=== PATIENT | female | born 2000 | race Caucasian/White ===

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

== ENCOUNTER 2020-12-30 14:43 | Observation (INO) ==
[2020-12-30] MEDS ORDERED: Ferumoxytol 510 MG in 0.9 % Sodium Chloride 100 ML IVPB ONE (15:36)
== END 2020-12-30 18:40 | disposition home or self-care (01) ==
LOC: 1NENULAB
PROVIDERS: ADMIT Advanced Practice Midwife; ATTEND Advanced Practice Midwife

== ENCOUNTER 2021-01-03 10:01 | Observation (INO) ==
[2021-01-03] MEDS ORDERED: Ferumoxytol 510 MG in 0.9 % Sodium Chloride 100 ML IVPB ONE (10:10)
== END 2021-01-03 11:24 | disposition home or self-care (01) ==
LOC: 1NENULAB
PROVIDERS: ADMIT Advanced Practice Midwife; ATTEND Advanced Practice Midwife

== ENCOUNTER 2021-01-08 07:57 | Inpatient (IN) ==
[2021-01-08] MEDS ORDERED: *HR* Nalbuphine 10 MG/ML AMPUL IV PRN (08:58)
[2021-01-08] MEDS ORDERED: Famotidine 20 MG/2 ML VIAL IVP PRN (08:58)
[2021-01-08] MEDS ORDERED: Naloxone 0.4 MG/ML INJ IVP PRN ×2 (08:58→11:39)
[2021-01-08] MEDS ORDERED: Lidocaine 1% 20 ML MDV INFILT PRN (08:58)
[2021-01-08] MEDS ORDERED: Metoclopramide 10 MG/2 ML VIAL IVP PRN (08:58)
[2021-01-08 09:52] LABS: Amphetamine Screen,Urine Negative ng/mL (Cutoff=1000); Barbiturate Screen,Urine Negative ng/mL (Cutoff=200); Benzodiazepines Screen,Urine Negative ng/mL (Cutoff=200); Cannabinoid Screen,Urine Negative ng/mL (Cutoff = 50); Cocaine Screen,Urine Negative ng/mL (Cutoff= 300); Opiate Screen,Urine Negative ng/mL (Cutoff=300); Phencyclidine Screen,Urine Negative ng/mL (Cutoff=25)
[2021-01-08] MEDS: Ringers Solution, Lactated 1,000 ML IVC SCH ×2 (09:52→15:09)
[2021-01-08] MEDS: Oxytocin 20 units/ LR 1000 mL 20 UNIT/1,000 ML BAG IVC SCH ×2 (09:52→18:57)
[2021-01-08] MEDS ORDERED: Vancomycin 1,500 MG/265 ML IV.SOLN IVPB SCH (10:00)
[2021-01-08 10:52] LABS: Basophils # 0.1 K/mcL (0.0-0.2); Basophils % 0.6 %; Eosinophils # 0.1 K/mcL (0.0-0.6); Eosinophils % 0.8 %; Hematocrit 29.5 % (35.3-44.9); Hemoglobin 8.6 g/dL (11.5-15.4); Lymphocytes # 2.7 K/mcL (0.6-4.6); Lymphocytes % 18.8 %; Mean Corpuscular HGB Conc 29.2 g/dL (31.6-35.5); Mean Corpuscular Hemoglobin 21.4 pg (28.0-33.3); Mean Corpuscular Volume 73.6 fL (83.0-100.0); Mean Platelet Volume 10.1 fL (9.4-12.4); Monocytes % 6.7 %; Neutrophils # 9.6 K/mcL (1.6-8.9); Platelet Count 276 K/mcL (140-400); Red Blood Count 4.01 M/mcL (3.82-4.97); Segmented Neutrophils % 68.1 %; White Blood Count 14.1 K/mcL (4.3-11.1)
[2021-01-08 10:53] LABS: Monocytes # 0.9 K/mcL (0.0-1.3)
[2021-01-08 11:08] LABS: Anisocytosis 3+ (Not Present); Ovalocytes 1+ (Not Present); Polychromasia 2+ (Not Present)
[2021-01-08 11:09] LABS: Platelet Estimate Normal (Normal); Tear Drop Cells 1+ (Not Present)
[2021-01-08] MEDS ORDERED: Ondansetron 4 MG/2 ML VIAL IVP PRN (11:39)
[2021-01-08] MEDS ORDERED: EPHEDrine 50 MG/ML VIAL IVP PRN (11:39)
[2021-01-08] MEDS ORDERED: Ropivacaine/PF 0.2% 20 ML VIAL EP ONE (11:39)
[2021-01-08] MEDS ORDERED: *HR* FentaNYL (PF) 100 MCG/2 ML VIAL EP ONE (11:39)
[2021-01-08] MEDS ORDERED: Epidural Premix (fent/bupiv) 110 ML EP SCH (11:45)
[2021-01-08] MEDS ORDERED: Ropivacaine/PF 0.2% 20 ML VIAL ONE (14:23)
[2021-01-08] MEDS ORDERED: Methylergonovine 0.2 MG/ML AMPUL IM ONE (17:30)
[2021-01-08] MEDS ORDERED: D5% in Lactated Ringers 1,000 ML IVC SCH (17:45)
[2021-01-09] MEDS ORDERED: Acetaminophen 325 MG TABLET PO PRN (08:51)
[2021-01-09] MEDS ORDERED: Lanolin 7 G OINT...G. TP PRN (08:51)
[2021-01-09] MEDS ORDERED: Benzocaine/Menthol 56 GM AEROSOL SPRAY TP PRN (08:51)
[2021-01-09] MEDS ORDERED: Ibuprofen 600 MG TABLET PO PRN (08:51)
[2021-01-09] MEDS ORDERED: Prenatal Vit/FA 1 EACH TABLET PO SCH (09:00)
[2021-01-09 10:18] LABS: Basophils % 0.2 %; Eosinophils % 0.8 %
[2021-01-09 10:20] LABS: Eosinophils # 0.1 K/mcL (0.0-0.6); Hematocrit 27.8 % (35.3-44.9); Hemoglobin 8.5 g/dL (11.5-15.4); Immature Granulocytes % 1.7 % (0-4); Lymphocytes # 1.9 K/mcL (0.6-4.6); Lymphocytes % 13.6 %; Mean Corpuscular HGB Conc 30.6 g/dL (31.6-35.5); Mean Corpuscular Hemoglobin 22.4 pg (28.0-33.3); Mean Corpuscular Volume 73.4 fL (83.0-100.0); Mean Platelet Volume 10.1 fL (9.4-12.4); Monocytes # 1.1 K/mcL (0.0-1.3); Monocytes % 7.8 %; Neutrophils # 10.8 K/mcL (1.6-8.9); Platelet Count 273 K/mcL (140-400); Red Blood Count 3.79 M/mcL (3.82-4.97); Segmented Neutrophils % 75.9 %; White Blood Count 14.2 K/mcL (4.3-11.1)
[2021-01-09 10:31] LABS: Anisocytosis 2+ (Not Present); Microcytosis Present (Not Present)
[2021-01-09 10:32] LABS: Ovalocytes 1+ (Not Present)
[2021-01-09 10:34] LABS: Poikilocytosis 1+ (Not Present); Tear Drop Cells 1+ (Not Present)
[2021-01-09 10:35] LABS: Platelet Estimate Normal (Normal)
[2021-01-09 15:52] VITALS: BP 123/70; PULSE 89; TEMP 97.8; O2SAT 97
== END 2021-01-09 19:05 | disposition home or self-care (01) | DRG 560 ==
LOC: 1NENULAB 07:57 → 1NENUOBS 21:01
PROVIDERS: ADMIT Registered Nurse; ATTEND Registered Nurse